=== PATIENT | female | born 1980 | race Caucasian/White ===

== ENCOUNTER 2017-05-30 13:40 | Emergency (ER) | payer MEDICAID, OTHER ==
[2017-05-30] MEDS: NORCO, ANEXSIA 5/325MG TABLET (HYDROcodone/ACETAMINOPHEN) PO (15:27)
== END 2017-05-30 16:50 | disposition home or self-care (01) ==
LOC: M ED 13:40
DX: S20.212A Contusion of left front wall of thorax, initial encounter (principal); W00.9XXA Unspecified fall due to ice and snow, initial encounter; Y92.9 Unspecified place or not applicable; Y93.9 Activity, unspecified; F17.200 Nicotine dependence, unspecified, uncomplicated; Z88.6 Allergy status to analgesic agent; Z88.5 Allergy status to narcotic agent; Z88.8 Allergy status to other drugs, medicaments and biological substances
CPT/HCPCS: 71101

== ENCOUNTER 2017-12-05 08:37 | Emergency (ER) | payer MEDICAID ==
[2017-12-05] MEDS: LIDOCAINE VISCOUS 2% SOLN 15ML UDC SS (09:14)
== END 2017-12-05 09:40 | disposition home or self-care (01) ==
LOC: M ED 08:37
DX: J02.0 Streptococcal pharyngitis (principal); M32.9 Systemic lupus erythematosus, unspecified; Z72.0 Tobacco use; Z88.6 Allergy status to analgesic agent; Z88.5 Allergy status to narcotic agent; Z88.8 Allergy status to other drugs, medicaments and biological substances
CPT/HCPCS: 87880

== ENCOUNTER → 2019-11-23 | Outpatient (REF) | payer MEDICAID, OTHER ==
[~2019-11-23] MED LIST: IBUP-1022 PO; IBUP-1114 PO; IBUP1TAB7 PO; MAGICMW MT
[2019-12-21 23:19] LABS: APPEARANCE, URINE CLOUDY (CLEAR); BACTERIA, URINE AUTO NEGATIVE (NEGATIVE); BILIRUBIN, URINE AUTO NEGATIVE (NEGATIVE); BLOOD, URINE BLOOD NEGATIVE (NEGATIVE); CALCIUM OXALATE CRYSTALS SMALL; COLOR, URINE YELLOW (YELLOW); GLUCOSE, URINE (UA) AUTO NEGATIVE (NEGATIVE); KETONE, URINE AUTO NEGATIVE (NEGATIVE); LEUKOCYTE ESTERASE, URINE AUTO 3+ (NEGATIVE); MUCUS, URINE SMALL (NEGATIVE); NITRITE, URINE AUTO NEGATIVE (NEGATIVE); PROTEIN, URINE AUTO 2+ mg/dL (NEGATIVE); RBC, URINE AUTO 30 /HPF (0-3); SPECIFIC GRAVITY URINE AUTO 1.032 (1.002-1.035); SQUAMOUS EPITHELIAL CELL UR AU 1 /HPF (0-6); UROBILINOGEN, URINE AUTO 0.2 mg/dL (0.0-2.0); WBC, URINE AUTO TNTC /HPF (0-3)
== END ==
LOC: M LAB REF 08:01
PROVIDERS: ATTEND Physician Assistant Medical
DX: N39.0 Urinary tract infection, site not specified (principal)

== ENCOUNTER → 2020-04-26 | Outpatient (REF) | payer OTHER ==
[~2020-04-26] MED LIST changes: +CIPR-249 PO; +HYDR-3713 PO; +NITR100C2
[2020-04-26 22:46] LABS: APPEARANCE, URINE CLOUDY (CLEAR); BACTERIA, URINE AUTO 1+ (NEGATIVE); BILIRUBIN, URINE AUTO NEGATIVE (NEGATIVE); BLOOD, URINE BLOOD 2+ (NEGATIVE); CALCIUM OXALATE CRYSTALS SMALL; COLOR, URINE YELLOW (YELLOW); GLUCOSE, URINE (UA) AUTO NEGATIVE (NEGATIVE); KETONE, URINE AUTO TRACE mg/dL (NEGATIVE); LEUKOCYTE ESTERASE, URINE AUTO 3+ (NEGATIVE); MUCUS, URINE MODERATE (NEGATIVE); NITRITE, URINE AUTO POSITIVE (NEGATIVE); PROTEIN, URINE AUTO 3+ mg/dL (NEGATIVE); RBC, URINE AUTO 21 /HPF (0-3); SPECIFIC GRAVITY URINE AUTO 1.027 (1.002-1.035); SQUAMOUS EPITHELIAL CELL UR AU 3 /HPF (0-6); TRANSITIONAL EPITHELIAL AUTO 2 /HPF; UROBILINOGEN, URINE AUTO 0.2 mg/dL (0.0-2.0); WBC, URINE AUTO TNTC /HPF (0-3)
== END ==
LOC: M LAB REF 18:00
PROVIDERS: ATTEND Physician Assistant Medical
DX: N39.0 Urinary tract infection, site not specified (principal)

== ENCOUNTER 2020-04-28 20:41 | Emergency (ER) | payer OTHER ==
[~2020-04-28] VITALS: Ht 154.9 cm; Wt 50.0 kg
[~2020-04-28 20:41] MED LIST changes: -CIPR-249 PO; -HYDR-3713 PO; -NITR100C2
[2020-04-28] MEDS ORDERED: NITR100C2 (20:49)
[2020-04-28] MEDS ORDERED: IBUPROFEN 600MG TAB PO ONE (22:00)
[2020-04-28] MEDS ORDERED: ONDANSETRON 4 MG ORAL DISINTEGRATING TAB PO ONE (22:00)
[2020-04-28 22:18] LABS: HEMATOCRIT 39.2 % (36.0-47.0); HEMOGLOBIN 12.5 g/dl (12.0-15.5); MEAN CORPUSCULAR HEMOGLOBIN 30.4 pg (27.0-33.0); MEAN CORPUSCULAR HGB CONC 31.9 g/dl (32.0-36.5); MEAN CORPUSCULAR VOLUME 95.4 fl (80.0-96.0); PLATELET COUNT, AUTOMATED 250 10^3/uL (150-450); RED BLOOD COUNT 4.11 10^6/uL (4.00-5.40); WHITE BLOOD COUNT 20.4 10^3/uL (4.0-10.0)
[2020-04-28 22:27] LABS: ANISOCYTOSIS 1+; LYMPHOCYTES 6 % (16-44); MONOCYTES 6 % (0-5); NEUTROPHILS 88 % (28-66); PLATELET ESTIMATE NORMAL (NORMAL)
[2020-04-28 22:56] LABS: ALT/SGPT 65 U/L (12-78); BILIRUBIN,DIRECT 0.2 MG/DL (0.0-0.2); BILIRUBIN,TOTAL 0.4 MG/DL (0.2-1.0); BLOOD UREA NITROGEN 13 MG/DL (7-18); CALCIUM LEVEL 8.7 MG/DL (8.5-10.1); CARBON DIOXIDE LEVEL 29 MEQ/L (21-32); CHLORIDE LEVEL 105 MEQ/L (98-107); CREATININE FOR GFR 0.85 MG/DL (0.55-1.30); GLOMERULAR FILTRATION RATE > 60.0 (>60); GLUCOSE, FASTING 99 MG/DL (70-100); LIPASE 75 U/L (73-393); POTASSIUM SERUM 3.5 MEQ/L (3.5-5.1); SODIUM LEVEL 138 MEQ/L (136-145); TOTAL PROTEIN 6.4 GM/DL (6.4-8.2)
--- NOTE | 2020-04-28 23:17 | REPVR ---
PROCEDURE INFORMATION: Exam: CT Abdomen And Pelvis Without Contrast Exam date and time: 04/28/2020 10:43 PM Age: 39 years old Clinical indication: Abdominal pain; Localized; Left lower quadrant (llq); Additional info: Llq pain TECHNIQUE: Imaging protocol: Computed tomography of the abdomen and pelvis without contrast. Radiation optimization: All CT scans at this facility use at least one of these dose optimization techniques: automated exposure control; mA and/or kV adjustment per patient size (includes targeted exams where dose is matched to clinical indication); or iterative reconstruction. COMPARISON: CT ABD PELVIS WITH CONTRAST 08/24/2015 9:25 AM FINDINGS: Lungs: Minimal bibasilar subpleural fibro-atelectatic change, right greater than left. Liver: There is low attenuation adjacent to the falciform ligament of the liver consistent with focal fatty infiltration. Gallbladder and bile ducts: The gallbladder is contracted with no stones. Pancreas: Normal. No ductal dilation. Spleen: Normal. No splenomegaly. Adrenal glands: Normal. No mass. Kidneys and ureters: Question of slight left perinephric induration with no hydronephrosis. Stomach and bowel: Minimal to mild colonic wall thickening. Appendix: A normal appendix is seen. Intraperitoneal space: Trace fluid in the cul-de-sac which is physiologic in amount. Vasculature: Unremarkable. No abdominal aortic aneurysm. Lymph nodes: Borderline left periaortic nodes. Urinary bladder: Unremarkable as visualized. Reproductive: Status post tubal ligation. Bones/joints: Unremarkable. No acute fracture. Soft tissues: Unremarkable. IMPRESSION: 1. Slight asymmetric left perinephric induration with no hydronephrosis which may reflect pyelonephritis. 2. Borderline left periaortic retroperitoneal nodes which are nonspecific but may be reactive. 3. Minimal to mild colonic wall thickening suggesting nonspecific pancolitis. Electronically signed by: Jose Whalen On 04/28/2020 23:17:22 PM
[2020-04-28 23:43] LABS: CHLAMYDIA DNA AMPLIFICATION NEGATIVE (NEGATIVE); GC DNA AMPLIFICATION NEGATIVE (NEGATIVE)
[2020-04-29] MEDS ORDERED: cefTRIAXone 500MG VIAL (J0696 PER 250MG) IM ONE
[2020-04-29] MEDS ORDERED: HYDR-3713 PO
[2020-04-29] MEDS ORDERED: CIPR-249 PO
[2020-04-29] MEDS ORDERED: LIDOCAINE 1% SDV 5ML VIAL DILUENT ONE
[2020-04-29] MEDS ORDERED: CIPROFLOXACIN 500MG TABLET PO ONE
[2020-04-29] MEDS ORDERED: NORCO 5/325MG TABLET (BULK FOR ED) PO ONE (00:15)
[2020-04-29 00:18] VITALS: BP 109/62
== END 2020-04-29 00:28 | disposition home or self-care (01) ==
LOC: M ED 20:41
DX: N10 Acute pyelonephritis (principal); R50.9 Fever, unspecified; R59.0 Localized enlarged lymph nodes; F17.200 Nicotine dependence, unspecified, uncomplicated; Z88.6 Allergy status to analgesic agent
CPT/HCPCS: 74176; 80048; 80076; 81001; 83690; 85025; 87086; 87491; 87591; 96372; 99283; J0696; Q0162

== ENCOUNTER 2021-02-15 10:37 | Emergency (ER) | payer OTHER ==
[~2021-02-15] VITALS: Ht 154.9 cm; Wt 55.0 kg
[~2021-02-15 10:37] MED LIST changes: +CIPR-249 PO; +HYDR-3713 PO; +NITR100C2
--- OUTSIDE RECORDS SUMMARY | 2021-02-15 10:42 | CCD ---
Author Author [facility] Organization [facility] Address Unknown Phone Unavailable Care Team Providers Care Window Caser Name Role Phone Zack Navarro REPORTS ANALYST Unavailable Unavailable Zack Navarro NP Unavailable Unavailable Zack Navarro NP Unavailable Unavailable Julissa Huff Unavailable Chidi Robbinsssica Unavailable Re-disclosure Warning The records that you are about to access may contain information from federally-assisted alcohol or drug abuse programs. If such information is present, then the following federally mandated warning applies: This information has been disclosed to you from records protected by federal confidentiality rules (42 CFR part 2). The federal rules prohibit you from making any further disclosure of this information unless further disclosure is expressly permitted by the written consent of the person to whom it pertains or as otherwise permitted by 42 CFR part 2. A general authorization for the release of medical or other information is NOT sufficient for this purpose. The Federal rules restrict any use of the information to criminally investigate or prosecute any alcohol or drug abuse patient.The records that you are about to access may contain highly sensitive health information, the redisclosure of which is protected by Article 27-F of the [place] State Public Health law. If you continue you may have access to information: Regarding HIV / AIDS; Provided by facilities licensed or operated by the [facility] of Mental Health; or Provided by the [facility] for People With Developmental Disabilities. If such information is present, then the following [facility] mandated warning applies: This information has been disclosed to you from confidential records which are protected by state law. State law prohibits you from making any further disclosure of this information without the specific written consent of the person to whom it pertains, or as otherwise permitted by law. Any unauthorized further disclosure in violation of state law may result in a fine or nursing home sentence or both. A general authorization for the release of medical or other information is NOT sufficient authorization for further disc losure. Allergies and Adverse Reactions Type Description Substance Reaction Status Data Source(s ) Propensity to adverse reactions to substance Phenergan Promethazine Hydrochloride 50 MG/ML Injectable Solution [Phenergan] Activ e [facility] ([facility]) Family History Family Member Name Family Member Gender Family Member Status Date o f Status Description Data Source(s) Unknown Unknown Encounters Encounter Providers Location Date Indications Data Source(s ) Extended Individual Psychotherapy - 45 min Attender: Felicia bangura [facility] 10/12/2020 11:00:00 AM EDT - 10/12/2020 11:00:00 AM EDT [facility] ([facility]) Attender: Jerica Robbins 10/12/2020 12:00:0 0 AM EDT [facility] ([facility]) Extended Individual Psychotherapy - 45 min Attender: Eflicia willem [facility] 09/24/2020 09:00:00 AM EDT - 09/24/2020 09:00:00 AM EDT [facility] ([facility]) [facility]/24/2020 12:00:0 0 AM EDT [facility] ([facility]) Extended Individual Psychotherapy - 45 min Attender: Felicia willem [facility] 09/21/2020 11:45:00 AM EDT - 09/21/2020 11:45:00 AM EDT [facility] ([facility]) Attender: Jerica Robbins 09/21/2020 12:00:0 0 AM EDT [facility] ([facility]) Outpatient Attender: Evan Navarro NP [facility] 09/02/2020 09:30:00 AM EDT - 09/02/2020 09:30:00 AM EDT [facility] ([facility]) Attender: Evan Navarro NP 09/02/2020 12:00:00 AM EDT [facility] ([facility]) Extended Individual Psychotherapy - 45 min Attender: Felicia Robbins [facility] 08/06/2020 10:45:00 AM EDT - 08/06/2020 10:45:00 AM EDT [facility] ([facility]) Attender: Jerica Robbins 08/06/2020 12:00:0 0 AM EDT [facility] ([facility]) Outpatient Attender: Evan Navarro NP [facility] 07/29/2020 09:30:00 AM EDT - 07/29/2020 09:30:00 AM EDT [facility] ([facility]) Attender: Evan Navarro NP 07/29/2020 12:00:00 AM EDT [facility] ([facility]) Extended Individual Psychotherapy - 45 min Attender: Felicia Robbins [facility] 07/15/2020 10:30:00 AM EDT - 07/15/2020 10:30:00 AM EDT [facility] ([facility]) Attender: Jerica Robbins 07/15/2020 12:00:0 0 AM EDT [facility] ([facility]) Telemed Diagnostic Eval Attender: Evan Navarro NP [facility] 06/25/2020 08:00:00 AM EST - 06/25/2020 08:00:00 AM EST [facility] ([facility]) Attender: Evan Navarro NP 06/25/2020 12:00:00 AM EST [facility] ([facility]) Extended Individual Psychotherapy - 45 min Attender: Felicia Robbins [facility] 06/17/2020 10:00:00 AM EST - 06/17/2020 10:00:00 AM EST [facility] ([facility]) Attender: Jerica Robbins 06/17/2020 12:00:0 0 AM EST [facility] ([facility]) Extended Individual Psychotherapy - 45 min Attender: Felicia Robbins [facility] 06/02/2020 09:15:00 AM EST - 06/02/2020 09:15:00 AM EST [facility] ([facility]) Attender: Jerica Robbins 06/02/2020 12:00:0 0 AM EST [facility] ([facility]) Extended Individual Psychotherapy - 45 min [facility] 05/21/2020 09:00:00 AM EST - 05/21/2020 09:00:00 AM EST [facility] ([facility]) [place]: [place] 05/21/2020 12:00:0 0 AM EST [facility] ([facility]) Psychiatric Diagnostic Evaluation (Non-Medical) [facility] 02:30:00 AM EST - 05/11/2020 02:30:00 AM EST [facility] ([facility]) Attender: Jerica [place] 05/11/2020 12:00:0 0 AM EST [facility] ([facility]) Brief Individual Psychotherapy - 30 min Attender: Julissa thakkar [facility] 05/03/2020 12:30:00 PM EST - 05/03/2020 12:30:00 PM EST [facility] ([facility]) Attender: Julissa Huff 05/03/2020 12:00:00 AM EST [facility] ([facility]) Functional Status Immunizations Vaccine Date Status Description Data Source(s) COVID-19 VACCINE Raji 07/23/2020 12:00:00 AM EDT completed [facility] Vaccine Series Complete: YESThis Data wa s Submitted to [facility]. Medications Medication Brand Name Start Date Product Form Dose Route Admi nistrative Instructions Pharmacy Instructions Status Indications Reaction Description Data Source(s) Fluoxetine 20 MG Oral Capsule fluoxetine 10/01/2020 12:00:00 AM EDT 20 mg by mouth completed <td ID="Medica tionRxNorm_1">510927</td><td ID="MedicationMedication_1">fluoxetine</td><td ID="MedicationRoute_1">by mouth</td><td ID="MedicationRouteConcept_1">F78706</td><td ID="MedicationStartDate_1">10/01/2020</td><td ID="MedicationStopDate_1"></td><td ID="MedicationDosageFrequency_1">once a day</td><td ID="MedicationDuration_1">30</td><td ID="MedicationFormulaStrength_1">20 mg</td><td ID="MedicationDosageForm_1">capsule</td><td ID="MedicationDosageFormCode_1"></td><td ID="MedicationDosageDescription_1"></td><td ID="MedicationMedicationId_1">[id number]</td><td ID="MedicationAccount_1">[id number]</td><td ID="MedicationNpid_1">[id number]</td><td ID="MedicationAuthorFirstName_1">Evan</td><td ID="MedicationAuthorLastName_1">Navarro</td><td ID="MedicationTaxonomyCode_1">[id number]</td><td ID="MedicationTaxonomyDesc_1">Nurse Practitioner</td><td ID="MedicationPhoneNumber_1">[phone]</td> [facility] ([facility]) 20 mg 06/25/2020 12:00:00 AM EST capsule 30 TAKE ONE CAPSULE BY MOUTH EVERY DAY TAKE ONE CAPSULE BY MOUTH EVERY DAY SOLD: 06/28/2020 [facility] 5-325 mg 04/29/2020 12:00:00 AM EST tablet 12 TAKE ONE TABLET BY MOUTH EVERY 6 HOURS NEEDED FOR PAIN, MAXIMUM DAILY DOSE = FOUR TABLETS TAKE ONE TABLET BY MOUTH EVERY 6 HOURS NEEDED FOR PAIN, MAXIMUM DAILY DOSE = FOUR TABLETS SOLD: 04/29/2020 [facility] 500 mg 04/29/2020 12:00:00 AM EST tablet 20 TAKE ONE TABLET BY MOUTH TWICE A DAY TAKE ONE TABLET BY MOUTH TWICE A DAY SOLD: 04/29/2020 [facility] 100 mg 04/26/2020 12:00:00 AM EST capsule 14 TAKE ONE CAPSULE BY MOUTH EVERY 12 HOURS FOR 7 DAYS TAKE ONE CAPSULE BY MOUTH EVERY 12 HOURS FOR 7 DAYS SO LD: 04/26/2020 [facility] Insurance Providers Payer name Policy type / Coverage type Policy ID Covered alliance party ID Covered alliance party's relationship to fish Policy Fish Plan Information MEDICAID M [id number] Self [id number] Medicaid S [id number] S [id number] Managed Care - [facility] Community Plan P [id number] S [id number] [facility] [id number] SP [id number] [facility] I [id number] Self [id number] [facility] [id number] SP [id number] [facility] O [id number] S [id number] SELF PAY UNAVAILABLE SP [facility]A BLE [id number] Self MEDICAID [id number] SP [id number] [facility] [id number] 18 [id number] MEDICAID - CLINIC [id number] [facility] AMERICHOICE XIX [facility] [id number] 18 [id number] [facility] O [id number] S [id number] [facility] [id number] SP [id number] [id number] SP [id number] MEDICAID [id number] SP [id number] MEDICAID M [id number] S [id number] Problems, Conditions, and Diagnoses Code Display Name Description Problem Type Effective Dates Data Source(s) Z72.0 Tobacco use Tobacco Use Disorder, Mild Condition 0 10/12/2020 12:00:00 AM EDT [facility] ([facility]) F12.10 Cannabis abuse, uncomplicated Cannabis Use Disorder, M ild Condition 10/12/2020 12:00:00 AM EDT [facility] ([facility]) F10.10 Alcohol abuse, uncomplicated Alcohol Use Disorder, Mil d Condition 10/12/2020 12:00:00 AM EDT [facility] ([facility]) F42.2 Mixed obsessional thoughts and acts Obsessive-Co mpulsive Disorder Condition 10/12/2020 12:00:00 AM EDT [facility] ([facility]) F43.9 Reaction to severe stress, unspecified U nspecified Trauma- and Stressor- Related Disorder Condition 10/12/2020 12:00:00 AM EDT [facility] ([facility]) F41.1 Generalized anxiety disorder Generalized Anxiety Disor kristy Condition 10/12/2020 12:00:00 AM EDT [facility] ([facility]) F33.1 Major depressive disorder, recurrent, mo derate Major Depressive Disorder, Recurrent episode, Moderate Condition 10/12/2020 12:00:00 AM EDT [facility] ([facility]) F42.2 Mixed obsessional thoughts and acts Obsessive-Co mpulsive Disorder Condition 09/02/2020 12:00:00 AM EDT [facility] ([facility]) Z72.0 Tobacco use Tobacco Use Disorder, Mild Condition 0 09/02/2020 12:00:00 AM EDT [facility] ([facility]) F12.10 Cannabis abuse, uncomplicated Cannabis Use Disorder, M ild Condition 09/02/2020 12:00:00 AM EDT [facility] ([facility]) F10.10 Alcohol abuse, uncomplicated Alcohol Use Disorder, Mil d Condition 09/02/2020 12:00:00 AM EDT [facility] ([facility]) F32.9 Major depressive disorder, single episod e, unspecified Unspecified depressive Disorder Condition 05/21/2020 12:00:00 AM EST [facility] ( [facility]) F41.1 Generalized anxiety disorder Generalized Anxiety Disor kristy Condition 05/21/2020 12:00:00 AM EST [facility] ([facility]) Z72.0 Tobacco use Tobacco Use Disorder, Mild Condition 0 05/11/2020 12:00:00 AM EST [facility] ([facility]) F12.10 Cannabis abuse, uncomplicated Cannabis Use Disorder, M ild Condition 05/11/2020 12:00:00 AM EST [facility] ([facility]) F10.10 Alcohol abuse, uncomplicated Alcohol Use Disorder, Mil d Condition 05/11/2020 12:00:00 AM EST [facility] ([facility]) F43.9 Reaction to severe stress, unspecified U nspecified Trauma- and Stressor- Related Disorder Condition 05/11/2020 12:00:00 AM EST [facility] ([facility]) F32.9 Major depressive disorder, single episod e, unspecified Unspecified depressive Disorder Condition 05/11/2020 12:00:00 AM EST [facility] ([facility]) Z72.0 Tobacco use Tobacco Use Disorder, Mild Condition 0 05/03/2020 12:00:00 AM EST [facility] ([facility]) F12.10 Cannabis abuse, uncomplicated Cannabis Use Disorder, M ild Condition 05/03/2020 12:00:00 AM EST [facility] ([facility]) F10.10 Alcohol abuse, uncomplicated Alcohol Use Disorder, Mil d Condition 05/03/2020 12:00:00 AM EST [facility] ([facility]) Surgeries/Procedures Procedure Description Date Indications Data Source(s) Extended Individual Psychotherapy - 45 min 10/12/2020 12:00:00 AM EDT - 10/12/2020 12:00:00 AM EDT [facility] ([facility]) Extended Individual Psychotherapy - 45 min 12:00:00 AM EDT [facility] ([facility]) Extended Individual Psychotherapy - 45 min 09/24/2020 12:00:00 AM EDT - 09/24/2020 12:00:00 AM EDT [facility] ([facility]) Extended Individual Psychotherapy - 45 min 12:00:00 AM EDT [facility] ([facility]) Extended Individual Psychotherapy - 45 min 09/21/2020 12:00:00 AM EDT - 09/21/2020 12:00:00 AM EDT [facility] ([facility]) Extended Individual Psychotherapy - 45 min 12:00:00 AM EDT [facility] ([facility]) MHC Telemed E/M Lvl 3--Est pt 09/02/2020 12:00:00 AM EDT - 09/02/2020 12:00:00 AM EDT [facility] ([facility]) Telemed A/O 30" 09/02/2020 12:00:00 AM EDT [facility] ([facility]) MHC Telemed E/M Lvl 3--Est pt 09/02/2020 12:00:00 AM E DT [facility] ([facility]) Extended Individual Psychotherapy - 45 min 08/06/2020 12:00:00 AM EDT - 08/06/2020 12:00:00 AM EDT [facility] ([facility]) Extended Individual Psychotherapy - 45 min 12:00:00 AM EDT [facility] ([facility]) MHC Telemed E/M Lvl 3--Est pt 07/29/2020 12:00:00 AM EDT - 07/29/2020 12:00:00 AM EDT [facility] ([facility]) Telemed A/O 30" 07/29/2020 12:00:00 AM EDT [facility] ([facility]) MHC Telemed E/M Lvl 3--Est pt 07/29/2020 12:00:00 AM E DT [facility] ([facility]) Extended Individual Psychotherapy - 45 min 07/15/2020 12:00:00 AM EDT - 07/15/2020 12:00:00 AM EDT [facility] ([facility]) Extended Individual Psychotherapy - 45 min 12:00:00 AM EDT [facility] ([facility]) Telemed Diagnostic Eval 06/25/2020 12:00 :00 AM EST - 06/25/2020 12:00:00 AM EST [facility] ([facility]) Telemed Diagnostic Eval 06/25/2020 12:00:00 AM EST [facility] ([facility]) Extended Individual Psychotherapy - 45 min 06/17/2020 12:00:00 AM EST - 06/17/2020 12:00:00 AM EST [facility] ([facility]) Extended Individual Psychotherapy - 45 min 12:00:00 AM EST [facility] ([facility]) Extended Individual Psychotherapy - 45 min 06/02/2020 12:00:00 AM EST - 06/02/2020 12:00:00 AM EST [facility] ([facility]) Extended Individual Psychotherapy - 45 min 12:00:00 AM EST [facility] ([facility]) Extended Individual Psychotherapy - 45 min 05/21/2020 12:00:00 AM EST - 05/21/2020 12:00:00 AM EST [facility] ([facility]) Extended Individual Psychotherapy - 45 min 12:00:00 AM EST [facility] ([facility]) Psychiatric Diagnostic Evaluation (Non-Medical) 05/11/2020 12:00:00 AM EST - 05/11/2020 12:00:00 AM EST [facility] ([facility]) Psychiatric Diagnostic Evaluation (Non-Medical) 2020 12:00:00 AM EST [facility] ([facility]) Brief Individual Psychotherapy - 30 min 05/03/2020 12:00:00 AM EST - 05/03/2020 12:00:00 AM EST [facility] ([facility]) Brief Individual Psychotherapy - 30 min 05/03/2020 12: 00:00 AM EST [facility] ([facility]) Results ID Date Data Source 199 04/26/2020 12:00:00 AM EST [facility] Name Value Range Interpretation Code Description Data Alka rce(s) Supporting Document(s) SARS-CoV2 Rapid Antigen [facility] This lab was ordered by [facility] and reported by [facility]. Procedure Social History Code Duration Value Status Description Data Source(s ) Smoking 10/12/2020 12:00:00 AM EDT Unknown if ever smoked comp leted Unknown if ever smoked [facility] ([facility]) Smoking 09/24/2020 12:00:00 AM EDT Unknown if ever smoked comp leted Unknown if ever smoked [facility] ([facility]) Smoking 09/21/2020 12:00:00 AM EDT Unknown if ever smoked comp leted Unknown if ever smoked [facility] ([facility]) Smoking 09/02/2020 12:00:00 AM EDT Unknown if ever smoked comp leted Unknown if ever smoked [facility] ([facility]) Smoking 08/06/2020 12:00:00 AM EDT Unknown if ever smoked comp leted Unknown if ever smoked [facility] ([facility]) Smoking 07/29/2020 12:00:00 AM EDT Unknown if ever smoked comp leted Unknown if ever smoked [facility] ([facility]) Smoking 07/15/2020 12:00:00 AM EDT Unknown if ever smoked comp leted Unknown if ever smoked [facility] ([facility]) Smoking 06/25/2020 12:00:00 AM EST Unknown if ever smoked comp leted Unknown if ever smoked [facility] ([facility]) Smoking 06/17/2020 12:00:00 AM EST Unknown if ever smoked comp leted Unknown if ever smoked [facility] ([facility]) Smoking 06/02/2020 12:00:00 AM EST Unknown if ever smoked comp leted Unknown if ever smoked [facility] ([facility]) Smoking 05/21/2020 12:00:00 AM EST Unknown if ever smoked comp leted Unknown if ever smoked [facility] ([facility]) Smoking 05/11/2020 12:00:00 AM EST Unknown if ever smoked comp leted Unknown if ever smoked [facility] ([facility]) Smoking 05/03/2020 12:00:00 AM EST Unknown if ever smoked comp leted Unknown if ever smoked [facility] ([facility]) Vital Signs ID Date Data Source UNK Name Value Range Interpretation Code Description Data Source(s) Body height 0.00 in Normal (applies to non-numeric resu lts) 0.00 in [facility] ([facility]) Body weight Measured 0.00 lbs Normal (applies to n on-numeric results) 0.00 lbs [facility] ([facility]) Body mass index (BMI) [Ratio] 0.00 kg/m2 No rmal (applies to non-numeric results) 0.00 kg/m2 [facility] ([facility]) Systolic blood pressure 0 mm[Hg] Normal (applies t o non-numeric results) 0 mm[Hg] [facility] ([facility]) Diastolic blood pressure 0 mm[Hg] Normal (applies to non-numeric results) 0 mm[Hg] [facility] ([facility]) Body height 0.00 in Normal (applies to non-numeric resu lts) 0.00 in [facility] ([facility]) Body weight Measured 0.00 lbs Normal (applies to n on-numeric results) 0.00 lbs [facility] ([facility]) Body mass index (BMI) [Ratio] 0.00 kg/m2 No rmal (applies to non-numeric results) 0.00 kg/m2 [facility] ([facility]) Systolic blood pressure 0 mm[Hg] Normal (applies t o non-numeric results) 0 mm[Hg] [facility] ([facility]) Diastolic blood pressure 0 mm[Hg] Normal (applies to non-numeric results) 0 mm[Hg] [facility] ([facility]) Body height 0.00 in Normal (applies to non-numeric resu lts) 0.00 in [facility] ([facility]) Body weight Measured 0.00 lbs Normal (applies to n on-numeric results) 0.00 lbs [facility] ([facility]) Body mass index (BMI) [Ratio] 0.00 kg/m2 No rmal (applies to non-numeric results) 0.00 kg/m2 [facility] ([facility]) Systolic blood pressure 0 mm[Hg] Normal (applies t o non-numeric results) 0 mm[Hg] [facility] ([facility]) Diastolic blood pressure 0 mm[Hg] Normal (applies to non-numeric results) 0 mm[Hg] [facility] ([facility])
--- OUTSIDE RECORDS SUMMARY | 2021-02-15 10:42 | CCD | Continuity of Care Document ---
Author Author Ny CARLSON MA Organization Unknown Address [address] [place] [id number] Phone [phone] Care Team Providers Care Commercial Insulator Name Role Phone No PCP [facility] Unavailable Problems Description No Information Available Social History Type Date Description Comments Sex Unknown Allergies and adverse reactions Description No Information Available Medications Description No Information Available Immunizations Description No Information Available Vital Signs Description No Information Available Results Description No Information Available Procedures Description No Information Available Medical Devices Description No Information Available Encounters Description No Information Available Assessments Description No Information Available Plan of Treatment No Information Available Functional Status Description No Information Available Mental Status Description No Information Available Referrals Description No Information Available
--- OUTSIDE RECORDS SUMMARY | 2021-02-15 10:42 | CCD | Continuity of Care Document ---
Author Author Ny CARLSON Organization Unknown Address [address] [place] [id number] Phone [phone] Care Team Providers Care Mold Preparer Name Role Phone No PCP AUTM Unavailable [...] Available Encounters Description No Information Available Assessments Date Code Description Provider 02/14/2021 Z20.828 Contact with and (shearer spected) exposure to other viral communicable diseases MELY Traore Plan of Treatment No Information Available Functional Status Description No Information Available Mental Status Description No Information Available Referrals Description No Information Available
[2021-02-15] MEDS ORDERED: ACET-683 PO (10:45)
[2021-02-15] MEDS ORDERED: NS 1,000 ML IV ONE (11:40)
[2021-02-15] MEDS ORDERED: KETOROLAC 30 MG/ML 1ML VIAL IV ONE (11:40)
[2021-02-15 12:20] LABS: BASO % 0.3 % (0.0-1.0); EOS # 0.1 10^3/uL (0.0-0.5); EOS % 0.8 % (0.0-3.0); HEMATOCRIT 43.2 % (36.0-47.0); HEMOGLOBIN 14.1 g/dl (12.0-15.5); LYMPH # 1.8 10^3/uL (1.5-5.0); LYMPH % 12.5 % (24.0-44.0); MEAN CORPUSCULAR HEMOGLOBIN 30.1 pg (27.0-33.0); MEAN CORPUSCULAR HGB CONC 32.6 g/dl (32.0-36.5); MEAN CORPUSCULAR VOLUME 92.1 fl (80.0-96.0); MONO # 1.2 10^3/uL (0.0-0.8); MONO % 8.6 % (2.0-8.0); NEUTROPHILS # 11.2 10^3/uL (1.5-8.5); NEUTROPHILS % 77.5 % (36.0-66.0); PLATELET COUNT, AUTOMATED 217 10^3/uL (150-450); RED BLOOD COUNT 4.69 10^6/uL (4.00-5.40); WHITE BLOOD COUNT 14.5 10^3/uL (4.0-10.0)
--- OUTSIDE RECORDS SUMMARY | 2021-02-15 12:24 | CCD ---
Author Author [facility] Organization [facility] Address Unknown Phone Unavailable Care Team Providers Care Food Checker Name Role Phone Zack Navarro BUTCHER HELPER Unavailable Unavailable Zack Navarro NP Unavailable Unavailable Zack Navarro NP Unavailable Unavailable Julissa Huff Unavailable Jerica Robbins Unavailable Re-disclosure Warning The records that you [...] is protected by Article 27-F of the [place] State Public Health law. If you continue you may have access to information: Regarding HIV / AIDS; Provided by facilities licensed or operated by the [facility] Office of Mental Health; or Provided by the [facility] Office for People With Developmental Disabilities. If such information is present, then the following [facility] mandated warning applies: This information has been [...] law may result in a fine or intermediate sentence or both. A general authorization for the release of medical or other information is NOT sufficient authorization for further disc losure. Allergies and Adverse Reactions Type Description Substance Reaction Status Data Source(s ) Propensity to adverse reactions to substance Phenergan Promethazine Hydrochloride 50 MG/ML Injectable Solution [Phenergan] Activ e [facility] ([facility]) Family History Family Member Name Family Member Gender Family Member Status Date o f Status Description Data Source(s) Unknown Unknown Encounters Encounter Providers Location Date Indications Data Source(s ) Extended Individual Psychotherapy - 45 min Attender: Felicia willem [facility] 10/12/2020 11:00:00 AM EDT - 10/12/2020 11:00:00 AM EDT [facility] ([facility]) Attender: Jerica Robbins 10/12/2020 12:00:0 0 AM EDT [facility] ([facility]) Extended Individual Psychotherapy - 45 min Attender: Felicia willem [facility] 09/24/2020 09:00:00 AM EDT - 09/24/2020 09:00:00 AM EDT [facility] ([facility]) Attender: Jerica Robbins 09/24/2020 12:00:0 0 AM EDT [facility] ([facility]) Extended Individual Psychotherapy - 45 min Attender: Felicia willem [facility] 09/21/2020 11:45:00 AM EDT - 09/21/2020 11:45:00 AM EDT [facility] ([facility]) Attender: Jerica Robbins 09/21/2020 12:00:0 0 AM EDT [facility] ([facility]) Outpatient Attender: Evan Navarro NP [facility] 09/02/2020 09:30:00 AM EDT - 09/02/2020 09:30:00 AM EDT [facility] ([facility]) Attender: Evan Navarro NP 09/02/2020 12:00:00 AM EDT [facility] ([facility]) Extended Individual Psychotherapy - 45 min Attender: Felicia bangura [facility] 08/06/2020 10:45:00 AM EDT - 08/06/2020 10:45:00 AM EDT [facility] ([facility]) Attender: Jerica Robbins 08/06/2020 12:00:0 0 AM EDT [facility] ([facility]) Outpatient Attender: Evan Navarro NP [facility] 07/29/2020 09:30:00 AM EDT - 07/29/2020 09:30:00 AM EDT [facility] ([facility]) Attender: Evan Navarro NP 07/29/2020 12:00:00 AM EDT [facility] ([facility]) Extended Individual Psychotherapy - 45 min Attender: Felicia bangura [facility] 07/15/2020 10:30:00 AM EDT - 07/15/2020 10:30:00 AM EDT [facility] ([facility]) Attender: Jerica Robbins 07/15/2020 12:00:0 0 AM EDT [facility] ([facility]) Telemed Diagnostic Eval Attender: Evan Navarro NP [facility] 06/25/2020 08:00:00 AM EST - 06/25/2020 08:00:00 AM EST [facility] ([facility]) Attender: Evan Navarro NP 06/25/2020 12:00:00 AM EST [facility] ([facility]) Extended Individual Psychotherapy - 45 min Attender: Felicia Robbins [facility] 06/17/2020 10:00:00 AM EST - 06/17/2020 10:00:00 AM EST [facility] ([facility]) Attender: Jerica Robbins 06/17/2020 12:00:0 0 AM EST [facility] ([facility]) Extended Individual Psychotherapy - 45 min Attender: Felicia Robbins [facility] 06/02/2020 09:15:00 AM EST - 06/02/2020 09:15:00 AM EST [facility] ([facility]) Attender: Jerica Robbins 06/02/2020 12:00:0 0 AM EST [facility] ([facility]) Extended Individual Psychotherapy - 45 [facility] 09:[facility]:00 AM EST - 05/21/2020 09:00:00 AM EST [facility] ([facility]) Attender: Jerica Robbins 05/21/2020 12:00:0 0 AM EST [facility] ([facility]) Psychiatric Diagnostic Evaluation (Non-Medical) [facility]11[facility] 02:30:00 AM EST - 05/11/2020 02:30:00 AM EST [facility] ([facility]) Attender: [place]ica [place] 05/11/2020 12:00:0 0 AM EST [facility] ([facility]) Brief Individual Psychotherapy - 30 min Attender: Julissa thakkar [facility] 05/03/2020 12:30:00 PM EST - 05/03/2020 12:30:00 PM EST [facility] ([facility]) Attender: Julissa Huff 05/03/2020 12:00:00 AM EST [facility] ([facility]) Functional Status Immunizations Vaccine Date Status Description Data Source(s) COVID-19 VACCINE Raji 07/23/2020 12:00:00 AM EDT completed [facility] Vaccine Series Complete: YESThis Data wa s Submitted to [facility] Via [employer]. Medications Medication Brand Name Start Date Product Form Dose Route Admi nistrative Instructions Pharmacy Instructions Status Indications Reaction Description Data Source(s) Fluoxetine 20 MG Oral Capsule fluoxetine 10/01/2020 12:00:00 AM EDT 20 mg by mouth completed <td ID="Medica tionRxNorm_1">[id number]</td><td ID="MedicationMedication_1">fluoxetine</td><td ID="MedicationRoute_1">by mouth</td><td ID="MedicationRouteConcept_1">[id number]</td><td ID="MedicationStartDate_1">10/01/2020</td><td ID="MedicationStopDate_1"></td><td ID="MedicationDosageFrequency_1">once a day</td><td ID="MedicationDuration_1">30</td><td ID="MedicationFormulaStrength_1">20 mg</td><td ID="MedicationDosageForm_1">capsule</td><td ID="MedicationDosageFormCode_1"></td><td ID="MedicationDosageDescription_1"></td><td ID="MedicationMedicationId_1">[id number]</td><td ID="MedicationAccount_1">[id number]</td><td ID="MedicationNpid_1">[id number]</td><td ID="MedicationAuthorFirstName_1">Evan</td><td ID="MedicationAuthorLastName_1">Navarro</td><td ID="MedicationTaxonomyCode_1">[id number]</td><td ID="MedicationTaxonomyDesc_1">Nurse Practitioner</td><td ID="MedicationPhoneNumber_1">[phone]</td> [facility] ([facility]) 20 mg 06/25/2020 12:00:00 AM EST capsule [...] type / Coverage type Policy ID Covered constitution party ID Covered constitution party's relationship to fish Policy Fish Plan Information MEDICAID M [id number] Self [id number] Medicaid S [id number] S [id number] Managed Care - [facility] Community Plan P [id number] S [id number] [facility] [id number] SP [id number] [facility] I [id number] Self [id number] [facility] COMMUNITY PLAN [facility] [id number] SP [id number] [place] O [id number] S [id number] SELF PAY UNAVAILABLE SP UNAVAILA BLE [facility] Hmo Commercial [id number] Self MEDICAID [id number] SP [id number] [facility] BLUE SHIELD-CLINIC [id number] 18 [id number] MEDICAID - CLINIC [id number] UN AMERICHOICE XIX O [id number] 18 [id number] [facility] [id number] SP [id number] [facility] O [id number] S [id number] [place] [id number] SP [id number] MEDICAID [id number] SP [id number] MEDICAID M [id number] S [id number] Problems, Conditions, and Diagnoses Code Display Name Description Problem Type Effective Dates Data Source(s) Z72.0 Tobacco use Tobacco Use Disorder, Mild Condition 0 10/12/2020 12:00:00 AM EDT [facility] ([facility]) F12.10 Cannabis abuse, uncomplicated Cannabis Use Disorder, M ild Condition 10/12/2020 12:00:00 AM EDT [facility] ([facility]) F10.10 Alcohol abuse, uncomplicated Alcohol Use Disorder, Mil d Condition 10/12/2020 12:00:00 AM EDT [facility] ([facility]) F42.2 Mixed obsessional thoughts and acts Obsessive-Co mpulsive Disorder Condition 10/12/2020 12:00:00 AM EDT [facility] ([facility]) F43.9 Reaction to severe stress, unspecified U nspecified Trauma- and Stressor- Related Disorder Condition 10/12/2020 12:00:00 AM EDT [facility] ([facility]) F41.1 Generalized anxiety disorder Generalized Anxiety Disor kristy Condition 10/12/2020 12:00:00 AM EDT [facility] ([facility]) F33.1 Major depressive disorder, recurrent, mo derate Major Depressive Disorder, Recurrent episode, Moderate Condition 10/12/2020 12:00:00 AM EDT [facility] ([facility]) F42.2 Mixed obsessional thoughts and acts Obsessive-Co mpulsive Disorder Condition 09/02/2020 12:00:00 AM EDT [facility] ([facility]) Z72.0 Tobacco use Tobacco Use Disorder, Mild Condition 0 09/02/2020 12:00:00 AM EDT [facility] ([facility]) F12.10 Cannabis abuse, uncomplicated Cannabis Use Disorder, M ild Condition 09/02/2020 12:00:00 AM EDT [facility] ([facility]) F10.10 Alcohol abuse, uncomplicated Alcohol Use Disorder, Mil d Condition 09/02/2020 12:00:00 AM EDT [facility] ([facility]) F32.9 Major depressive disorder, single episod e, unspecified Unspecified depressive Disorder Condition 05/21/2020 12:00:00 AM EST [facility] ([facility]) F41.1 Generalized anxiety disorder Generalized Anxiety Disor kristy Condition 05/21/2020 12:00:00 AM EST [facility] ([facility]) Z72.0 Tobacco use Tobacco Use Disorder, Mild Condition 0 05/11/2020 12:00:00 AM EST [facility] ([facility]) F12.10 Cannabis abuse, uncomplicated Cannabis Use Disorder, M ild Condition 05/11/2020 12:00:00 AM EST [facility] ([facility]) F10.10 Alcohol abuse, uncomplicated Alcohol Use Disorder, Mil d Condition 05/11/2020 12:00:00 AM EST [facility] ([facility]) F43.9 Reaction to severe stress, unspecified U nspecified Trauma- and Stressor- Related Disorder Condition 05/11/2020 12:00:00 AM EST [facility] ([facility]) F32.9 Major depressive disorder, single episod e, unspecified Unspecified depressive Disorder Condition 05/11/2020 12:00:00 AM EST [facility] ([facility]) Z72.0 Tobacco use Tobacco Use Disorder, Mild Condition 0 05/03/2020 12:00:00 AM EST [facility] ([facility]) F12.10 Cannabis abuse, uncomplicated Cannabis Use Disorder, M ild Condition 05/03/2020 12:00:00 AM EST [facility] ([facility]) F10.10 Alcohol abuse, uncomplicated Alcohol Use Disorder, Mil d Condition 05/03/2020 12:00:00 AM EST [facility] ([facility]) Surgeries/Procedures Procedure Description Date Indications Data Source(s) Extended Individual Psychotherapy - 45 min 10/12/2020 12:00:00 AM EDT - 10/12/2020 12:00:00 AM EDT [facility] ([facility]) Extended Individual Psychotherapy - 45 min 12:00:00 AM EDT [facility] ([facility]) Extended Individual Psychotherapy - 45 min 09/24/2020 12:00:00 AM EDT - 09/24/2020 12:00:00 AM EDT [facility] ([facility]) Extended Individual Psychotherapy - 45 min 12:00:00 AM EDT [facility] ([facility]) Extended Individual Psychotherapy - 45 min 09/21/2020 12:00:00 AM EDT - 09/21/2020 12:00:00 AM EDT [facility] ([facility]) Extended Individual Psychotherapy - 45 min 12:00:00 AM EDT [facility] ([facility]) MHC Telemed E/M Lvl 3--Est pt 09/02/2020 12:00:00 AM EDT - 09/02/2020 12:00:00 AM EDT [facility] ([facility]) Telemed A/O 30" 09/02/2020 12:00:00 AM EDT [facility] ([facility]) MHC Telemed E/M Lvl 3--Est pt 09/02/2020 12:00:00 AM E DT [facility] ([facility]) Extended Individual Psychotherapy - 45 min 08/06/2020 12:00:00 AM EDT - 08/06/2020 12:00:00 AM EDT [facility] ([facility]) Extended Individual Psychotherapy - 45 min 12:00:00 AM EDT [facility] ([facility]) MHC Telemed E/M Lvl 3--Est pt 07/29/2020 12:00:00 AM EDT - 07/29/2020 12:00:00 AM EDT [facility] ([facility]) Telemed A/O 30" 07/29/2020 12:00:00 AM EDT [facility] ([facility]) MHC Telemed E/M Lvl 3--Est pt 07/29/2020 12:00:00 AM E DT [facility] ([facility]) Extended Individual Psychotherapy - 45 min 07/15/2020 12:00:00 AM EDT - 07/15/2020 12:00:00 AM EDT [facility] ([facility]) Extended Individual Psychotherapy - 45 min 12:00:00 AM EDT [facility] ([facility]) Telemed Diagnostic Eval 06/25/2020 12:00 :00 AM EST - 06/25/2020 12:00:00 AM EST [facility] ([facility]) Telemed Diagnostic Eval 06/25/2020 12:00:00 AM EST [facility] ([facility]) Extended Individual Psychotherapy - 45 min 06/17/2020 12:00:00 AM EST - 06/17/2020 12:00:00 AM EST [facility] ([facility]) Extended Individual Psychotherapy - 45 min 12:00:00 AM EST [facility] ([facility]) Extended Individual Psychotherapy - 45 min 06/02/2020 12:00:00 AM EST - 06/02/2020 12:00:00 AM EST [facility] ([facility]) Extended Individual Psychotherapy - 45 min 12:00:00 AM EST [facility] ([facility]) Extended Individual Psychotherapy - 45 min 05/21/2020 12:00:00 AM EST - 05/21/2020 12:00:00 AM EST [facility] ([facility]) Extended Individual Psychotherapy - 45 min 12:00:00 AM EST [facility] ([facility]) Psychiatric Diagnostic Evaluation (Non-Medical) 05/11/2020 12:00:00 AM EST - 05/11/2020 12:00:00 AM EST [facility] ([facility]) Psychiatric Diagnostic Evaluation (Non-Medical) 2020 12:00:00 AM EST [facility] ([facility]) Brief Individual Psychotherapy - 30 min 05/03/2020 12:00:00 AM EST - 05/03/2020 12:00:00 AM EST [facility] ([facility]) Brief Individual Psychotherapy - 30 min 05/03/2020 12: 00:00 AM EST [facility] ([facility]) Results ID Date Data Source 199 04/26/2020 12:00:00 AM EST [facility] Name Value Range Interpretation Code Description Data Alka rce(s) Supporting Document(s) SARS-CoV2 Rapid Antigen [facility] This lab was ordered by [facility] and reported by [facility]. Procedure Social History Code Duration Value Status Description Data Source(s ) Smoking 10/12/2020 12:00:00 AM EDT Unknown if ever smoked comp leted Unknown if ever smoked [facility] ([facility]) Smoking 09/24/2020 12:00:00 AM EDT Unknown if ever smoked comp leted Unknown if ever smoked [facility] ([facility]) Smoking 09/21/2020 12:00:00 AM EDT Unknown if ever smoked comp leted Unknown if ever smoked [facility] ([facility]) Smoking 09/02/2020 12:00:00 AM EDT Unknown if ever smoked comp leted Unknown if ever smoked [facility] ([facility]) Smoking 08/06/2020 12:00:00 AM EDT Unknown if ever smoked comp leted Unknown if ever smoked [facility] ([facility]) Smoking 07/29/2020 12:00:00 AM EDT Unknown if ever smoked comp leted Unknown if ever smoked [facility] ([facility]) Smoking 07/15/2020 12:00:00 AM EDT Unknown if ever smoked comp leted Unknown if ever smoked [facility] ([facility]) Smoking 06/25/2020 12:00:00 AM EST Unknown if ever smoked comp leted Unknown if ever smoked [facility] ([facility]) Smoking 06/17/2020 12:00:00 AM EST Unknown if ever smoked comp leted Unknown if ever smoked [facility] ([facility]) Smoking 06/02/2020 12:00:00 AM EST Unknown if ever smoked comp leted Unknown if ever smoked [facility] ([facility]) Smoking 05/21/2020 12:00:00 AM EST Unknown if ever smoked comp [facility]ed [facility] Smoking 05/11/2020 12:00:00 AM EST Unknown if ever smoked comp leted Unknown if ever smoked [facility] ([facility]) Smoking 05/03/2020 12:00:00 AM EST Unknown if ever smoked comp leted Unknown if ever smoked [facility] Vital Signs ID Date Data Source UNK Name Value Range Interpretation Code Description Data Source(s) Body height 0.00 in Normal (applies to non-numeric resu lts) 0.00 in [facility] ([facility]) Body weight Measured 0.00 lbs Normal (applies to n on-numeric results) 0.00 lbs [facility] ([facility]) Body mass index (BMI) [Ratio] 0.00 kg/m2 No rmal (applies to non-numeric results) 0.00 kg/m2 [facility] ([facility]) Systolic blood pressure 0 mm[Hg] Normal (applies t o non-numeric results) 0 mm[Hg] [facility] ([facility]) Diastolic blood pressure 0 mm[Hg] Normal (applies to non-numeric results) 0 mm[Hg] [facility] ([facility]) Body height 0.00 in Normal (applies to non-numeric resu lts) 0.00 in [facility] ([facility]) Body weight Measured 0.00 lbs Normal (applies to n on-numeric results) 0.00 lbs [facility] Body mass index (BMI) [Ratio] 0.00 kg/m2 No rmal (applies to non-numeric results) 0.00 kg/m2 [facility] ([facility]) Systolic blood pressure 0 mm[Hg] Normal (applies t o non-numeric results) 0 mm[Hg] [facility] Diastolic blood pressure 0 mm[Hg] Normal (applies to non-numeric results) 0 mm[Hg] [facility] ([facility]) Body height 0.00 in Normal (applies to non-numeric resu lts) 0.00 in [facility] ([facility]) Diastolic blood pressure 0 mm[Hg] Normal (applies to non-numeric results) 0 mm[Hg] [facility] Body weight Measured 0.00 lbs Normal (applies to n on-numeric results) 0.00 lbs [facility] ([facility]) Systolic blood pressure 0 mm[Hg] Normal (applies t o non-numeric results) 0 mm[Hg] [facility] ([facility]) Body mass index (BMI) [Ratio] 0.00 kg/m2 No rmal (applies to non-numeric results) 0.00 kg/m2 [facility] ([facility])
[2021-02-15 12:36] LABS: RSV AMPLIFICATION NEGATIVE (NEGATIVE)
[2021-02-15 12:52] LABS: ALBUMIN 3.3 GM/DL (3.2-5.2); ALT/SGPT 57 U/L (12-78); BILIRUBIN,TOTAL 0.3 MG/DL (0.2-1.0); BLOOD UREA NITROGEN 7 MG/DL (7-18); CALCIUM LEVEL 8.8 MG/DL (8.5-10.1); CARBON DIOXIDE LEVEL 27 MEQ/L (21-32); CHLORIDE LEVEL 104 MEQ/L (98-107); CREATININE FOR GFR 0.66 MG/DL (0.55-1.30); GLOMERULAR FILTRATION RATE > 60.0 (>58); GLUCOSE, FASTING 94 MG/DL (70-100); HCG, SERUM QUANTITATIVE < 1.0 MIU/ML; LIPASE 80 U/L (73-393); POTASSIUM SERUM 3.9 MEQ/L (3.5-5.1); SODIUM LEVEL 136 MEQ/L (136-145); TOTAL PROTEIN 7.2 GM/DL (6.4-8.2)
[2021-02-15] MEDS ORDERED: LIDOCAINE 1% SDV 5ML VIAL DILUENT ONE (13:10)
[2021-02-15] MEDS ORDERED: cefTRIAXone SOD 1GM VIAL (J0696 PER 250MG) IM ONE (13:10)
[2021-02-15] MEDS ORDERED: ACETAMINOPHEN 325 MG TAB PO ONE (13:15)
--- NOTE | 2021-02-15 13:15 | REP ---
INDICATION: dysuria, Left flank pain. COMPARISON: Multiple the latest 04/28/2020 also without contrast TECHNIQUE: Standard helical technique without intravenous or oral bowel preparatory contrast administration. Stone protocol utilized due to left flank pain FINDINGS: The lung bases are clear and unchanged. Limited evaluation of the solid intra-organs and gallbladder show no abnormalities. Limited evaluation of the pancreas, adrenal glands, and kidneys show no abnormalities or significant changes from the prior exam. Once again, there is borderline para-aortic adenopathy difficult to evaluate without contrast but not appearing significantly changed compared to the prior exam. There is no nephroureterolithiasis, hydronephrosis, or hydroureter. There are no urinary bladder calcifications. There is no significant change in appearance of the bowel loops or the mesenteries. There is no evidence of free fluid or free air. There is no evidence of a mass or adenopathy. Bone window technique throughout the exam shows the osseous structures to be stable and intact. IMPRESSION: Possible mild para-aortic adenopathy, as described above, and having a stable appearance but difficult to evaluate without intravenous contrast. Etiology uncertain. 1. No evidence of acute disease. Other findings as described above. <Electronically signed by Yinka Bernabe > 02/15/21 [id number]
[2021-02-15] MEDS ORDERED: ISOVUE-370 76% 100ML VIAL As Ordered ONE (13:43)
--- NOTE | 2021-02-15 14:09 | REP ---
INDICATION: evaluation of possible para aortic adenopathy. COMPARISON: Multiple the latest contrast-enhanced examination 08/24/2015 and the latest prior examination obtained earlier today a noncontrast enhanced examination. TECHNIQUE: Standard helical technique after the intravenous administration of 100 cc Isovue 370 FINDINGS: The liver, gallbladder, spleen, pancreas, and adrenal glands, are within normal limits. Note is again made of a left renal cyst. Also seen in the interpolar region of the left kidney posteriorly there is a subtle irregular area of focal decreased density which might be enhancing. This measures approximately 1.2 cm. It represents a change from the prior contrast enhanced CT and was imperceptible on all prior noncontrast enhanced CTs. There are multiple borderline and mildly enlarged left para-aortic lymph nodes the largest node has a short axis dimension of 1 cm. These have increased in size compared to the prior contrast enhanced examination of 08/24/2015. The bowel loops and the mesenteries are within normal limits. There is no evidence of free fluid or free air. There is evidence of a decompressing left ovarian follicle. The osseous structures are within normal limits. IMPRESSION: 1. There is mild para-aortic adenopathy, as described above, and the etiology of which is uncertain. This needs follow-up and clinical correlation. 2. Subtle and vague finding involving the left kidney as described above. Early pyelonephritis should be clinically evaluated for. Follow-up is recommended. 3. Other findings as described above. <Electronically signed by Yinka Bernabe > 02/15/21 [id number]
[2021-02-15] MEDS ORDERED: PYRI1TAB5 PO (14:48)
[2021-02-15] MEDS ORDERED: CIPR-249 PO (14:48)
[2021-02-15 15:02] VITALS: BP 108/62
--- NOTE | 2021-02-15 17:05 | ED PDOC ---
Post-Departure Follow-Up dr link and [facility] faxed formal report of ct abd/p without and with con trast for fu Krys Grover MD Feb 15, 2021 17:05
== END 2021-02-15 15:05 | disposition home or self-care (01) ==
LOC: M ED 10:37
DX: N39.0 Urinary tract infection, site not specified (principal); R59.1 Generalized enlarged lymph nodes; M32.9 Systemic lupus erythematosus, unspecified; Z88.5 Allergy status to narcotic agent; Z88.8 Allergy status to other drugs, medicaments and biological substances; F17.210 Nicotine dependence, cigarettes, uncomplicated
CPT/HCPCS: 74176; 74177; 80053; 81001; 83690; 84702; 85025; 87086; 87631; 87880; 96372; 96374; 99284; J0696; J1885; Q9967

== ENCOUNTER → 2021-05-30 | Outpatient (CLI) | payer OTHER ==
[~2021-05-30] MED LIST changes: +ACET-683 PO; +GASTROGRAFIN SOLUTION 30ML (Q9963) ONE; +ISOVUE-370 76% 100ML VIAL ONE; +PYRI1TAB5 PO
== END ==
LOC: M PLAIMG 11:17
PROVIDERS: ATTEND Internal Medicine Medical Oncology
DX: R59.1 Generalized enlarged lymph nodes (principal)

== ENCOUNTER → 2023-06-28 | Outpatient (REF) | payer OTHER ==
[~2023-06-28] MED LIST changes: -GASTROGRAFIN SOLUTION 30ML (Q9963) ONE; -ISOVUE-370 76% 100ML VIAL ONE
[2023-06-28 12:39] LABS: HEMATOCRIT 45.2 % (36.0-47.0); HEMOGLOBIN 14.8 g/dl (12.0-15.5); MEAN CORPUSCULAR HEMOGLOBIN 29.9 pg (27.0-33.0); MEAN CORPUSCULAR HGB CONC 32.7 g/dl (32.0-36.5); MEAN CORPUSCULAR VOLUME 91.3 fl (80.0-96.0); PLATELET COUNT, AUTOMATED 289 10^3/uL (150-450); RED BLOOD COUNT 4.95 10^6/uL (4.00-5.40); WHITE BLOOD COUNT 5.5 10^3/uL (4.0-10.0)
[2023-06-28 13:12] LABS: ALKALINE PHOSPHATASE 87 U/L (46-116); ALT/SGPT 22 U/L (7.0-40); AST/SGOT 18 U/L (<34); BILIRUBIN,TOTAL 0.4 MG/DL (0.3-1.2); BLOOD UREA NITROGEN 13 MG/DL (9-23); CALCIUM LEVEL 8.6 MG/DL (8.5-10.1); CARBON DIOXIDE LEVEL 30 MMOL/L (20-31); CHLORIDE LEVEL 103 MMOL/L (98-107); CHOLESTEROL LEVEL 202 MG/DL (<200); GLOMERULAR FILTRATION RATE > 60.0 (>58); GLUCOSE, FASTING 92 MG/DL (60-100); HDL CHOLESTEROL 74.8 MG/DL (>40); LDL CHOLESTEROL 114.4 MG/DL (<100); NON-HDL-C 127.2 MG/DL; POTASSIUM SERUM 4.4 MMOL/L (3.5-5.1); SODIUM LEVEL 136 MMOL/L (136-145); TOTAL PROTEIN 7.3 G/DL (5.7-8.2); TRIGLYCERIDES LEVEL 64 MG/DL (<150)
[2023-06-28 13:13] LABS: FREE T4 0.92 NG/DL (0.89-1.76); THYROID STIMULATING HORMONE 2.037 uIU/ML (0.55-4.78)
== END ==
LOC: M LAB REF 11:27
PROVIDERS: ATTEND Family Medicine Addiction Medicine
DX: Z13.228 Encounter for screening for other metabolic disorders (principal)

== ENCOUNTER → 2024-07-14 | Outpatient (CLI) | payer OTHER | LOC: M EKG 07-07 12:14 | PROVIDERS: ATTEND Nurse Practitioner Psychiatric/Mental Health | DX: F43.20 Adjustment disorder, unspecified (principal); R94.31 Abnormal electrocardiogram [ECG] [EKG] ==